=== PATIENT | female | born 1990 | race American Indian/Alaskan Native ===

== ENCOUNTER 2021-02-10 19:46 | Emergency (ER) | payer OTHER ==
[2021-02-10 21:06] VITALS: BP 124/76
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
== END 2021-02-11 01:45 | disposition home or self-care (01) ==
LOC: ED 19:46
DX: S20.212A Contusion of left front wall of thorax, initial encounter (principal); Z79.899 Other long term (current) drug therapy; V49.49XA Driver injured in collision with other motor vehicles in traffic accident, initial encounter; Y93.89 Activity, other specified; Y92.488 Other paved roadways as the place of occurrence of the external cause; Y99.8 Other external cause status
CPT/HCPCS: 99283